=== PATIENT | male | born 1975 | race Caucasian/White ===

== ENCOUNTER 2019-06-27 23:14 | Emergency (ER) | payer OTHER ==
--- NOTE | 2019-06-27 23:32 | PDOC ---
History of Present Illness - General Chief Complaint: Bone Injury Stated Complaint: HAND INJ Time Seen by Provider: 06/27/19 23:29 *DC/Admit/Observation/Transfer - Referrals Referrals: Lyssa Olvera MD [Primary Care Provider] - - Patient Instructions - Post Discharge Activity
[2019-06-27 23:34] VITALS: BP 114/82; PULSE 52; TEMP 98.4; BMI 26.1
--- NOTE | 2019-06-27 23:49 | PDOC ---
Documentation entered by Johnny Mcfarland SCRIBE, acting as scribe for Tucker Jansen MD. Tucker Jansen MD: This documentation has been prepared by the Bartolo rutledge Xhesika, SCRIBE, under my direction and personally reviewed by me in its entirety. I confirm that the documentation accurately reflects all work, treatment, procedures, and medical decision making performed by me. Attending Attestation - Resident Resident Name: Ned Gold - ED Attending Attestation I have performed the following: I have examined & evaluated the patient, The case was reviewed & discussed with the resident, I agree w/resident's findings & plan, Exceptions are as noted - HPI HPI: 06/27/19 23:45 The patient is a 43 year old male with a significant PMH of TAA, HLD and HTN who presents to the emergency department for L wrist pain s/p mechanical fall yesterday. The patient states he tripped, fell, and landed on his L hand. Patient states his wrist pain radiates up to his elbow and is worsened with movement and tenderness on palpation. Patient denies hitting his head or LOC. Patient denies any bleeding. The patient denies chest pain, shortness of breath, headache and dizziness. Denies fever, chills, cough, nausea, vomiting, diarrhea and constipation. Denies dysuria, frequency, urgency and hematuria. Allergies: NKDA PCP: Lyssa Story - Physicial Exam PE: 06/28/19 01:58 Agree with exam as documented by resident - Medical Decision Making 06/28/19 01:58 Pain to wrist and elbow after FOOSH analgesia f/u xr no obvious fracture on xr splint f/u for re-eval, repeat xr
--- NOTE | 2019-06-28 00:01 | PDOC ---
History of Present Illness - General Chief Complaint: Bone Injury Stated Complaint: HAND INJ Time Seen by Provider: 06/27/19 23:29 - History of Present Illness Initial Comments: Mr. 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 Reports that he had a mechanical fall yesterday and landed on his left hand, outstretched ulnar deviation. Describes the pain as worse when he moves his left thumb and left index finger, with pain radiating up his left forearm to his left elbow. Denies head injury, neck injury, loss of consciousness, nausea, vomiting, chest pain, shortness of breath. Denies bleeding or bruising in the injured hand. Patient has iced the area but has not used any other pain control. Past History - Past Medical History Allergies/Adverse Reactions: Allergies Allergy/AdvReac Type Severity Reaction Status Date / Time No Known Allergies Allergy Verified 06/27/19 23:33 Home Medications: Ambulatory Orders Naproxen 500 mg PO BID PRN 7 Days #14 tablet 06/28/19 Cardiac Disorders: Yes COPD: No HTN: Yes Hypercholesterolemia: Yes - Suicide/Smoking/Psychosocial Hx Smoking History: Never smoked Have you smoked in the past 12 months: No Information on smoking cessation initiated: No Hx Alcohol Use: No Drug/Substance Use Hx: No Review of Systems - Review of Systems Comments:: GENERAL/CONSTITUTIONAL: No fever or chills. No weakness._ HEAD, EYES, EARS, NOSE AND THROAT: No change in vision. No change in hearing. No sore throat._ CARDIOVASCULAR: No chest pain or shortness of breath_ GASTROINTESTINAL: No nausea, vomiting, diarrhea or constipation._ MUSCULOSKELETAL: Reports left hand pain. No neck or back pain._ SKIN: No rash_ NEUROLOGIC: No headache, vertigo, loss of consciousness, or change in strength/ sensation._ HEMATOLOGIC/LYMPHATIC: No anemia, easy bleeding, or history of blood clots._ *Physical Exam - Vital Signs Last Vital Signs Temp Pulse Resp BP Pulse Ox 98.4 F 52 L 17 114/82 100 06/27/19 23:29 06/27/19 23:29 06/27/19 23:29 06/27/19 23:29 06/27/19 23:29 - Physical Exam Comments: Exam is limited 2/2 pain. GENERAL: Awake, alert, and oriented to person/place/time, in no acute distress_ HEAD: No signs of trauma, normocephalic, atraumatic _ EYES: PERRLA, EOMI, sclera anicteric, conjunctiva clear_ NECK: Normal ROM, supple, no lymphadenopathy, JVD, or masses_ LUNGS: No distress, speaks in full sentences, clear to auscultation bilaterally _ HEART: Regular rate and rhythm, normal S1 and S2, no murmurs appreciated, peripheral pulses normal and equal bilaterally._ ABDOMEN: Soft, nontender. No guarding, no rebound. No masses_ EXTREMITIES: Full ROM and 5/5 strength and sensation in upper right extremity. Full ROM in left shoulder and elbow. 5/5 strength/sensation in left arm. TTP to left elbow. No bruising appreciated in left forearm and left hand. TTP left anatomical snuffbox. 2+ radial pulse, equal bilaterally Cap refill < 2 seconds in left hand Acute Care Occupational Therapist strength equal bilaterally NEUROLOGICAL: Cranial nerves II through XII grossly intact. Normal speech, normal gait, no focal sensorimotor deficits _ SKIN: Warm, Dry, normal turgor, no rashes or lesions noted_ ED Treatment Course - RADIOLOGY Radiology Studies Ordered: Category Date Time Status ELBOW-LEFT [RAD] Stat Radiology 06/27/19 23:43 Ordered WRIST W/HAND-LEFT* [RAD] Stat Radiology 06/27/19 23:43 Ordered - Medications Given in the ED: ED Medications Discontinued Medications Generic Name Dose Route Start Last Admin Trade Name Freq PRN Reason Stop Dose Admin Oxycodone/Acetaminophen 1 combo 06/27/19 23:44 06/27/19 23:47 Percocet 5/325 - PO 06/27/19 23:45 1 combo ONCE ONE Administration Medical Decision Making - Medical Decision Making 43M s/p mechanical fall landing on left hand in ulnar deviation. No bruising. No bleeding. No head trauma or neck trauma. Obtain XR left hand, wrist, elbow. 06/28/19 02:08 XR of the left hand/wrist/elbow does not show any obvious fracture. Pain has improved with percocet and motrin. Plan to d/c home with strict return precautions and f/u hand surgery. *DC/Admit/Observation/Transfer Diagnosis at time of Disposition: Injury of left hand Qualifiers: Encounter type: initial encounter Qualified Code(s): S69.92XA - Unspecified injury of left wrist, hand and finger(s), initial encounter - Discharge Dispostion Disposition: HOME Condition at time of disposition: Stable - Prescriptions Prescriptions: Naproxen 500 mg PO BID PRN 7 Days #14 tablet PRN Reason: Pain - Referrals Referrals: Lyssa Olvera MD [Primary Care Provider] - Ric Acosta MD [Staff Physician] - - Patient Instructions Additional Instructions: Please make an appointment to follow up with hand surgery within 1 day. It is extremely important that you follow up with a hand specialist to further evaluate your hand injury. If you experience any new, worsening, or concerning symptoms, including severe pain in the hand that does not go away, difficulty moving the hand, cold to the touch left hand, fever, swelling, or any other concerns, please return to the emergency room. - Post Discharge Activity
[2019-06-28] MEDS ORDERED: IBUPROFEN 400 MG TABLET (FP) PO ONE (01:09)
[2019-06-28] MEDS ORDERED: IBUPROFEN 600 MG TABLET (FP) PO ONE (01:18)
== END 2019-06-28 02:18 | disposition home or self-care (01) ==
LOC: JER 23:14
DX: S69.82XA Other specified injuries of left wrist, hand and finger(s), initial encounter (principal); W18.39XA Other fall on same level, initial encounter; Y93.89 Activity, other specified; Y92.89 Other specified places as the place of occurrence of the external cause; Y99.8 Other external cause status; I10 Essential (primary) hypertension; E78.5 Hyperlipidemia, unspecified; I71.2 Thoracic aortic aneurysm, without rupture
CPT/HCPCS: 73070-TC-LT-FY; 73110-TC-LT-FY; 73130-TC-LT-FY; 99281-25

== ENCOUNTER 2019-10-19 19:24 | Emergency (ER) | payer OTHER ==
[2019-10-19 19:35] VITALS: PULSE 57; BMI 26.4
--- NOTE | 2019-10-19 19:56 | PDOC ---
History of Present Illness - General Chief Complaint: Pain Stated Complaint: S.O.B, CHEST PAIN Time Seen by Provider: 10/19/19 19:56 History Source: Patient - History of Present Illness Initial Comments: 10/20/19 02:23 Mr. More is a 44 y/o man with hx HTN, bicuspid aortic valve, known aortic aneurysm (most recently approx 4.6 cm, medically managed thus far), p/w pleuritic chest pain, chills, and shortness of breath that began three days ago. He reports that for the last week he has had intermittent lightheadedness. He reports being very active and regularly working out, and that these symptoms have not prevented him from completing his cardio regimen. He reports that the pain is worst when he breaths in deeply. He denies any fevers, weakness, confusion, vertigo, nausea, vomiting, abdominal pain, or pain radiating to his back. Past History - Past Medical History Allergies/Adverse Reactions: Allergies Allergy/AdvReac Type Severity Reaction Status Date / Time No Known Allergies Allergy Verified 10/19/19 19:35 Home Medications: Ambulatory Orders Enalapril Maleate [Vasotec -] 2.5 mg PO DAILY 10/19/19 Rosuvastatin Calcium [Crestor] 5 mg PO DAILY 10/19/19 Azithromycin 250 mg PO DAILY #4 tablet 10/20/19 Cardiac Disorders: Yes (enlarged aorta) COPD: No HTN: Yes Hypercholesterolemia: Yes - Psycho Social/Smoking Cessation Hx Smoking History: Never smoked Have you smoked in the past 12 months: No Hx Alcohol Use: No Drug/Substance Use Hx: No Review of Systems - Review of Systems Able to Perform ROS?: Yes Comments:: 10/20/19 02:38 ROS: GENERAL/CONSTITUTIONAL: Chills. No fever. No weakness. HEAD, EYES, EARS, NOSE AND THROAT: No change in vision. No ear pain or discharge. No sore throat. CARDIOVASCULAR: Chest pain, shortness of breath RESPIRATORY: No cough, wheezing, or hemoptysis. GASTROINTESTINAL: No nausea, vomiting, diarrhea or constipation. GENITOURINARY: No dysuria, frequency, or change in urination. MUSCULOSKELETAL: No joint or muscle swelling or pain. No neck or back pain. SKIN: No rash NEUROLOGIC: Lightheadedness. No headache, vertigo, loss of consciousness, or change in strength/sensation. ENDOCRINE: No increased thirst. No abnormal weight change HEMATOLOGIC/LYMPHATIC: No anemia, easy bleeding, or history of blood clots. ALLERGIC/IMMUNOLOGIC: No hives or skin allergy. *Physical Exam - Vital Signs Last Vital Signs Temp Pulse Resp BP Pulse Ox 98.1 F 57 L 18 135/90 100 10/19/19 19:32 10/19/19 19:32 10/19/19 19:32 10/19/19 19:32 10/19/19 19:32 - Physical Exam 10/20/19 02:39 PE: GENERAL: Awake, alert, and fully oriented, in no acute distress HEAD: No signs of trauma, normocephalic, atraumatic EYES: PERRLA, EOMI, sclera anicteric, conjunctiva clear ENT: Auricles normal inspection, hearing grossly normal, nares patent, oropharynx clear without exudates. Moist mucosa NECK: Normal ROM, supple, no lymphadenopathy, JVD, or masses LUNGS: No distress, speaks full sentences, clear to auscultation bilaterally HEART: Irregular rhythm noted, no other murmurs, rubs or gallops, peripheral pulses normal and equal bilaterally. ABDOMEN: Soft, nontender, normoactive bowel sounds. No guarding, no rebound. No masses EXTREMITIES : Normal inspection, Normal range of motion, no edema. No clubbing or cyanosis NEUROLOGICAL: Cranial nerves II through XII grossly intact. Normal speech, normal gait, no focal sensorimotor deficits SKIN: Warm, Dry, normal turgor, no rashes or lesions noted ED Treatment Course - LABORATORY CBC & Chemistry Diagram: 10/19/19 20:40 10/19/19 20:40 Medical Decision Making - Medical Decision Making 10/20/19 02:36 44M w/hx AA (4.6 cm), bicuspid aortic valve, HTN p/w pleuritic chest pain, chills for three days and one week of intermittent lightheadedness, most likely representing respiratory infection but most concerning for worsening of aortic aneurysm vs PE. Plan: CBC CMP Cardiac profile EKG CXR CTA chest Dispo: Pending labs, imaging --- Troponin - negative CBC, CMP - wnl CTA chest - AA measured at 4.3cm. Opacities noted in lung maldonado. Plan for azithromycin to cover for possible pneumonia, discharge home with PCP follow up. Discharge - Discharge Information Problems reviewed: Yes Clinical Impression/Diagnosis: Chest pain, pleuritic Condition: Stable Disposition: HOME - Admission No - Additional Discharge Information Prescriptions: Azithromycin 250 mg PO DAILY #4 tablet - Follow up/Referral Referrals: Lyssa Olvera MD [Primary Care Provider] - - Patient Discharge Instructions Patient Printed Discharge Instructions: DI for Pneumonia -- Adult Additional Instructions: You were seen in the ER for chest pain that worsened with deep breaths, lightheadedness. Your blood work was normal. Your aortic aneurysm appears unchanged in size (4.3cm on your CT today). Your chest CT showed some markings which may be sign of infection - please take your antibiotic as directed, for 5 days. Please return to the ER if you develop worsening chest pain, high fevers, weakness, changes in vision, or feel as if you are going to pass out, or pass out. Please see your primary care provider as soon as possible, in the next 2 days. - Post Discharge Activity
[2019-10-19 21:04] LABS: BASO % 0.6 % (0-2.0); EOS % 5.2 % (0-4.5); HEMATOCRIT 42.8 % (35.4-49); HEMOGLOBIN 14.5 GM/dL (11.7-16.9); LYMPH % 38.5 % (8-40); MCH 30.4 pg (25.7-33.7); MEAN CELL VOLUME 89.5 fl (80-96); MEAN PLT VOLUME 9.5 fl (7.5-11.1); MONO % 10.4 % (3.8-10.2); NEUT % 45.3 % (42.8-82.8); PLATELET COUNT 213 K/MM3 (134-434); RBC 4.78 M/mm3 (4.00-5.60); RDW 13.1 % (11.9-15.9); WHITE BLOOD COUNT 7.5 K/mm3 (4.0-10.0)
[2019-10-19 21:16] LABS: INR 1.03 (0.83-1.09); PROTHROMBIN TIME (PATIENT) 12.1 SEC (9.7-13.0)
[2019-10-19 21:19] LABS: ACTIVATED PTT 30.7 SECONDS (25.2-36.5)
--- NOTE | 2019-10-19 21:40 | PDOC ---
Attending Attestation - Resident Resident Name: John Maldonado - ED Attending Attestation I have performed the following: I have examined & evaluated the patient, The case was reviewed & discussed with the resident, I agree w/resident's findings & plan, Exceptions are as noted - HPI HPI: 10/19/19 21:36 44 M with h/o thoracic AA (4.6 cm in 2018), bicuspid aortic valve, presenting to ED with 5 days of chest tightness, SOB, and cough. Pt denies F/C. States that he has been short of breath both at rest and with exertion. Denies any leg swelling or calf pain. Recently traveled to [place] 1 week ago. No h/o asthma/ COPD. Non-smoker. - Physicial Exam PE: 10/19/19 21:39 "GENERAL: Awake, alert, and fully oriented, in no acute distress. HEAD: No signs of trauma EYES: PERRLA, EOMI, sclera anicteric, conjunctiva clear ENT: Auricles normal inspection, hearing grossly normal, nares patent, oropharynx clear without exudates. Moist mucosa NECK: Nontender, no stepoffs, Normal ROM, supple, no lymphadenopathy, JVD, or masses LUNGS: Breath sounds equal, clear to auscultation bilaterally. No wheezes, and no crackles HEART: Regular rate and rhythm, normal S1 and S2, no murmurs, rubs or gallops ABDOMEN: Soft, nontender, normoactive bowel sounds. No guarding, no rebound. No masses EXTREMITIES: Normal range of motion, no edema. No clubbing or cyanosis. No cords, erythema, or tenderness NEUROLOGICAL: Cranial nerves II through XII intact. 5/5 strength and sensation in all extremities, Normal speech, normal gait, normal cerebellar function SKIN: Warm, Dry, normal turgor, no rashes or lesions noted. - Medical Decision Making 10/19/19 21:39 44 M with CP + SOB. Will evaluate for PE given recent travel. Will also evaluate pt's TAA. - Labs - CTA chest 10/20/19 00:50 Labs wnl CTA unremarkable other than groundglass opacities. Will tx for atypical PNA with azithro. Pt is well appearing, with normal vitals. Clinically stable for DC at this time. I discussed the physical exam findings, ancillary test results and final diagnoses with the patient. I answered all of the patient's questions. The patient was satisfied with the care received and felt comfortable with the discharge plan and treatment plan. The patient agrees to follow up with the primary care physician within 24-72 hours.
[2019-10-19 21:54] LABS: ALBUMIN 3.8 g/dl (3.4-5.0); BILIRUBIN,TOTAL 0.3 mg/dL (0.2-1); BLOOD UREA NITROGEN 19.6 mg/dL (7-18); CALCIUM 9.4 mg/dL (8.5-10.1); CREATININE 0.9 mg/dL (0.55-1.3); TOT PROT 7.2 g/dl (6.4-8.2)
[2019-10-19] MEDS ORDERED: ACETAMINOPHEN 325 MG TABLET (FP) PO ONE (23:16)
[2019-10-19] MEDS ORDERED: ACETAMINOPHEN 325 MG TABLET (FP) ONE (23:42)
[2019-10-20] MEDS ORDERED: AZITHROMYCIN 250 MG TABLET PO ONE (00:51)
[2019-10-20] MEDS ORDERED: AZITHROMYCIN 250 MG TABLET ONE (01:09)
[2019-10-20 01:19] VITALS: BP 135/92; TEMP 98.2
--- NOTE | 2019-10-20 18:34 | EKG ---
Test Reason : Blood Pressure : / mmHG Vent. Rate : 056 BPM Atrial Rate : 056 BPM P-R Int : 188 ms QRS Dur : 108 ms QT Int : 440 ms P-R-T Axes : 024 004 010 degrees QTc Int : 424 ms SINUS BRADYCARDIA WITH FREQUENT PREMATURE VENTRICULAR COMPLEXES MODERATE VOLTAGE CRITERIA FOR LVH, MAY BE NORMAL VARIANT NONSPECIFIC ST AND T WAVE ABNORMALITY NO PREVIOUS ECGS AVAILABLE Confirmed by ARTI KNOX MD ([id number]) on 10/20/2019 6:34:13 PM Referred By: Confirmed By:ARTI KNOX MD
== END 2019-10-20 01:16 | disposition home or self-care (01) ==
LOC: JER 19:24
DX: J18.9 Pneumonia, unspecified organism (principal); I10 Essential (primary) hypertension; E78.00 Pure hypercholesterolemia, unspecified; I71.2 Thoracic aortic aneurysm, without rupture
CPT/HCPCS: 36415; 71045-TC-FY; 71275-TC; 80053; 82550; 82553; 84484; 85025; 85610; 85730; 87804; 93005; 93010; 99283-25; Q9967

== ENCOUNTER 2021-10-22 00:52 | Emergency (ER) | payer OTHER ==
[2021-10-22 01:10] VITALS: BMI 26.8
[2021-10-22] MEDS ORDERED: ACETAMINOPHEN 500 MG TABLET (FP) PO ONE (02:17)
[2021-10-22] MEDS ORDERED: ACETAMINOPHEN 500 MG TABLET (FP) ONE (02:25)
[2021-10-22 03:04] LABS: BASO % 0.4 % (0-2.0); EOS % 5.6 % (0-4.5); HEMATOCRIT 39.7 % (35.4-49); HEMOGLOBIN 13.5 GM/dL (11.7-16.9); MCH 29.9 pg (25.7-33.7); MEAN PLT VOLUME 8.4 fl (7.5-11.1); MONO % 9.2 % (3.8-10.2); NEUT % 44.8 % (42.8-82.8); PLATELET COUNT 202 10^3/uL (134-434); RBC 4.51 M/mm3 (4.00-5.60); RDW 13.5 % (11.9-15.9); WHITE BLOOD COUNT 6.7 K/mm3 (4.0-10.0)
[2021-10-22 03:16] LABS: PH,URINE 5.5 (5.0-8.0); URINE APPEARANCE CLEAR; URINE BILIRUBIN NEGATIVE (NEGATIVE); URINE COLOR YELLOW; URINE GLUCOSE (UA) NEGATIVE (NEGATIVE); URINE KETONE NEGATIVE (NEGATIVE); URINE LEUK ESTERASE NEGATIVE (NEGATIVE); URINE NITRITE NEGATIVE (NEGATIVE); URINE PROTEIN NEGATIVE (NEGATIVE); URINE UROBILINOGEN 0.2 mg/dL (0.2-1.0)
[2021-10-22 03:37] LABS: ALBUMIN 3.9 g/dl (3.4-5.0)
[2021-10-22 03:42] LABS: BILIRUBIN,TOTAL 0.4 mg/dL (0.2-1); TOT PROT 7.2 g/dl (6.4-8.2)
[2021-10-22] MEDS ORDERED: SODIUM CHLORIDE 0.9% 500 ML INFUS.BAG IV ONE (04:24)
[2021-10-22 10:06] VITALS: BP 127/95; PULSE 54; TEMP 98
== END 2021-10-22 10:18 | disposition home or self-care (01) ==
LOC: JER 00:52
DX: R10.9 Unspecified abdominal pain (principal)
CPT/HCPCS: 36415; 74177-TC; 76705-TC; 80053; 81003; 82550; 82553; 83690; 84484; 85025; 87086; 93005; 93010; 99285-25

== ENCOUNTER 2022-09-25 19:55 | Emergency (ER) | payer OTHER ==
[2022-09-25 21:02] VITALS: BP 124/94; PULSE 66; RESP 18; TEMP 97.8; BMI 26.4
[2022-09-25 22:07] LABS: BASO % 0.4 % (0-2.0); EOS % 2.6 % (0-4.5); HEMATOCRIT 43.3 % (35.4-49); HEMOGLOBIN 14.3 GM/dL (11.7-16.9); LYMPH % 37.1 % (8-40); MCH 29.1 pg (25.7-33.7); MCHC 33.1 g/dl (32.0-35.9); MEAN PLT VOLUME 8.4 fl (7.5-11.1); MONO % 9.2 % (3.8-10.2); NEUT % 50.7 % (42.8-82.8); PLATELET COUNT 258 10^3/uL (134-434); RBC 4.92 M/mm3 (4.00-5.60); WHITE BLOOD COUNT 8.1 K/mm3 (4.0-10.0)
[2022-09-25 22:16] LABS: INR 1.07 (0.83-1.09); PROTHROMBIN TIME (PATIENT) 12.3 SEC (9.7-13.0)
[2022-09-25 22:19] LABS: ACTIVATED PTT 29.3 SECONDS (25.2-36.5); BLOOD UREA NITROGEN 19.3 mg/dL (7-18); CALCIUM 9.3 mg/dL (8.5-10.1)
[2022-09-25 22:24] LABS: BILIRUBIN,TOTAL 0.4 mg/dL (0.2-1); TOT PROT 7.4 g/dl (6.4-8.2)
== END 2022-09-26 01:00 | disposition home or self-care (01) ==
LOC: JER 19:55
DX: M54.50 Low back pain, unspecified (principal)
CPT/HCPCS: 36415; 71046-TC-FY; 71275-TC; 74174-TC; 80053; 84484; 85025; 85610; 85730; 93005; 93010; 99284-25; Q9967